=== PATIENT | male | born 1980 | race Caucasian/White ===

== ENCOUNTER 2018-04-19 09:41 | Inpatient (IN) | payer MEDICAID, OTHER ==
[~2018-04-19] VITALS: Ht 175.3 cm; Wt 67.5 kg
[2018-04-19] MEDS ORDERED: SODIUM CHLORIDE FLUSH 10ML SYR IVF ONE (10:00)
[2018-04-19] MEDS ORDERED: SODIUM CHLORIDE 0.9% 1,000ML IVBOLUS ONE ×2 (10:00→11:00)
[2018-04-19] MEDS ORDERED: LORazepam 2 MG/ML, 1ML ONE ×3 (10:12→11:54)
[2018-04-19] MEDS: LORazepam 2 MG/ML, 1ML IVPush PRN ×4 (10:16→13:44)
[2018-04-19 10:21] LABS: BASOPHILS # (AUTO) 0.02 x10^3/uL (0-0.1); BASOPHILS % (AUTO) 0 % (0-1); EOSINOPHILS % (AUTO) 0 % (1-7); LYMPHOCYTES # (AUTO) 1.14 x10^3/uL (1-3.4); LYMPHOCYTES % (AUTO) 6 % (22-44); MD NO; MEAN CORPUSCULAR HEMOGLOBIN 33.2 pg (27.5-34.5); MEAN CORPUSCULAR HGB CONC 35.2 g/dL (33.2-36.2); MEAN CORPUSCULAR VOLUME 94.6 fL (81-97); MEAN PLATELET VOLUME 6.9 fL (7.4-10.4); MONOCYTES # (AUTO) 0.47 x10^3/uL (0.2-0.8); MONOCYTES % (AUTO) 3 % (2-9); NEUTROPHILS % (AUTO) 91 % (42-75); PLATELET COUNT 308 x10^3/uL (130-400); RED BLOOD COUNT 4.71 x10^6/uL (4.38-5.82); RED CELL DISTRIBUTION WIDTH 12.6 % (9.4-14.8)
[2018-04-19 10:31] LABS: ALANINE AMINOTRANSFERASE 52 U/L (12-78); ALBUMIN 4.2 g/dL (3.4-5.0); ANION GAP 19 mmol/L (5-15); CALCIUM 9.3 mg/dL (8.5-10.1); CHLORIDE 102 mmol/L (98-107)
[2018-04-19 10:34] LABS: ALKALINE PHOSPHATASE 95 U/L (45-117); BILIRUBIN,TOTAL 0.8 mg/dL (0.2-1.0); TOTAL PROTEIN 8.1 g/dL (6.4-8.2)
[2018-04-19] MEDS ORDERED: ONDANSETRON 2MG/ML, 2ML IVPush ONE (12:00)
[2018-04-19] MEDS ORDERED: ACETAMINOPHEN 325 MG TABLET PO PRN (13:00)
[2018-04-19] MEDS ORDERED: ONDANSETRON 2MG/ML, 2ML IVPush PRN (13:00)
[2018-04-19] MEDS ORDERED: morphine SULFATE 10 MG/ML, 1ML IVPush PRN (13:00)
[2018-04-19] MEDS: NICOTINE 7 MG/24 HR PATCH.TD24 TD SCH ×2 (13:00→22:23)
[2018-04-19] MEDS ORDERED: LORazepam 2 MG/ML, 1ML IV PRN ×3 (13:00)
[2018-04-19] MEDS ORDERED: LORazepam 1MG TABLET PO PRN ×3 (13:00)
[2018-04-19] MEDS ORDERED: THIAMINE 200 MG, MVI ADULT 10 ML, FOLIC ACID 1 MG in D5%-0.9% NACL 1,000 ML IV SCH (13:30)
[2018-04-19] MEDS: FAMOTIDINE 20 MG/2 ML IVPush SCH ×2 (13:58→21:04)
[2018-04-19] MEDS: LORazepam 1MG TABLET PO PRN (13:58)
[2018-04-19 14:05] VITALS: BP 120/79
[2018-04-19 14:32] VITALS: BP 120/79
[2018-04-19] MEDS ORDERED: ZOLPIDEM 5MG TABLET PO PRN (20:00)
[2018-04-19 20:19] VITALS: BP 111/68
[2018-04-20 01:33] VITALS: BP 118/69
[2018-04-20] MEDS: LORazepam 1MG TABLET PO PRN (04:00)
[2018-04-20 05:38] LABS: BASOPHILS # (AUTO) 0.03 x10^3/uL (0-0.1); BASOPHILS % (AUTO) 1 % (0-1); EOSINOPHILS # (AUTO) 0.06 x10^3/uL (0-0.4); EOSINOPHILS % (AUTO) 1 % (1-7); LYMPHOCYTES # (AUTO) 1.18 x10^3/uL (1-3.4); LYMPHOCYTES % (AUTO) 23 % (22-44); MD NO; MEAN CORPUSCULAR HGB CONC 35.1 g/dL (33.2-36.2); MEAN PLATELET VOLUME 7.3 fL (7.4-10.4); MONOCYTES # (AUTO) 0.51 x10^3/uL (0.2-0.8); MONOCYTES % (AUTO) 10 % (2-9); NEUTROPHILS # (AUTO) 3.44 x10^3/uL (1.8-6.8); NEUTROPHILS % (AUTO) 66 % (42-75); PLATELET COUNT 208 x10^3/uL (130-400); RED BLOOD COUNT 3.91 x10^6/uL (4.38-5.82); RED CELL DISTRIBUTION WIDTH 12.1 % (9.4-14.8)
[2018-04-20 05:46] LABS: ALANINE AMINOTRANSFERASE 41 U/L (12-78); ALBUMIN 3.3 g/dL (3.4-5.0); ANION GAP 8 mmol/L (5-15); CALCIUM 8.7 mg/dL (8.5-10.1); CHLORIDE 106 mmol/L (98-107); CREATININE 0.59 mg/dL (0.7-1.3)
[2018-04-20 05:47] LABS: ALKALINE PHOSPHATASE 81 U/L (45-117); BILIRUBIN,TOTAL 0.9 mg/dL (0.2-1.0); TOTAL PROTEIN 6.7 g/dL (6.4-8.2)
[2018-04-20] MEDS ORDERED: MAGNESIUM SULFATE 4 GM in SODIUM CHLORIDE 0.9% 100 ML IV ONE (07:00)
[2018-04-20 07:44] VITALS: BP 122/79
[2018-04-20] MEDS: FAMOTIDINE 20 MG/2 ML IVPush SCH (08:21)
[2018-04-20 12:47] VITALS: BP 118/77
== END 2018-04-20 13:30 | disposition left against medical advice (07) | DRG 641 ==
LOC: ED 10:20 → EDIP 12:20 → 4EST 13:19
PROVIDERS: ADMIT Hospitalist; ATTEND Internal Medicine
DX: E87.6 Hypokalemia (principal); F10.239 Alcohol dependence with withdrawal, unspecified; F17.210 Nicotine dependence, cigarettes, uncomplicated; E83.42 Hypomagnesemia; D72.829 Elevated white blood cell count, unspecified; Z53.21 Procedure and treatment not carried out due to patient leaving prior to being seen by health care provider
CPT/HCPCS: 36415; 99285; J7042; S0028; 80053; 80307; 83735; 85025; 93005; G0378; J2405; J3411; J3475; J2060; J7030

== ENCOUNTER 2019-01-12 10:02 | Emergency (ER) | payer MEDICAID ==
[~2019-01-12] VITALS: Ht 175.3 cm; Wt 64.3 kg
--- NOTE | 2019-01-12 10:39 | NUR ---
PT C/O BLOOD IN STOOL/NAUSEA/VOMITING. PT STATES HE USES HEROIN OCCASSIONALLY. 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
[2019-01-12] MEDS ORDERED: ONDANSETRON 2MG/ML, 2ML ONE ×2 (10:55→11:30)
[2019-01-12] MEDS ORDERED: FAMOTIDINE 20 MG/2 ML ONE (10:56)
[2019-01-12] MEDS ORDERED: SODIUM CHLORIDE FLUSH 10ML SYR IVF ONE (11:00)
[2019-01-12] MEDS ORDERED: SODIUM CHLORIDE 0.9% 1,000ML IVBOLUS ONE (11:00)
[2019-01-12] MEDS ORDERED: ONDANSETRON 2MG/ML, 2ML IVPush ONE ×2 (11:00→11:30)
[2019-01-12] MEDS ORDERED: FAMOTIDINE 20 MG/2 ML IVP ONE (11:00)
--- NOTE | 2019-01-12 11:14 | NUR ---
Patient is resting comfortably in bed. Vital Signs within normal limits.
--- NOTE | 2019-01-12 11:29 | NUR ---
YELLOW SLIP SENT TO PHARMACY FOR MEDS PER SEP.
[2019-01-12] MEDS ORDERED: THIAMINE 200 MG in SODIUM CHLORIDE 0.9% 50 ML IV ONE (11:30)
[2019-01-12] MEDS ORDERED: morphine SULFATE 10 MG/ML, 1ML IVPush ONE (11:30)
[2019-01-12] MEDS ORDERED: FOLIC ACID 1 MG in DEXTROSE 5% 50 ML IV SCH (11:30)
[2019-01-12] MEDS ORDERED: LORazepam 2 MG/ML, 1ML IVPush ONE (11:30)
[2019-01-12] MEDS ORDERED: LORazepam 2 MG/ML, 1ML ONE (11:31)
[2019-01-12] MEDS ORDERED: MORPHINE SULFATE 4 MG/ML, 1ML ONE (11:31)
--- NOTE | 2019-01-12 11:58 | NUR ---
PT REPORTS HE FEELS MUCH BETTER NOW. VSS. NAD. PT EATING ICE CHIPS AND TOLERATING INTAKE.
[2019-01-12 12:05] LABS: BASOPHILS # (AUTO) 0.05 x10^3/uL (0-0.1); BASOPHILS % (AUTO) 0 % (0-1); EOSINOPHILS % (AUTO) 0 % (1-7); LYMPHOCYTES # (AUTO) 1.37 x10^3/uL (1-3.4); LYMPHOCYTES % (AUTO) 11 % (22-44); MD NO; MEAN CORPUSCULAR HEMOGLOBIN 31.8 pg (27.5-34.5); MEAN CORPUSCULAR HGB CONC 33.7 g/dL (33.2-36.2); MEAN CORPUSCULAR VOLUME 94.3 fL (81-97); MEAN PLATELET VOLUME 7.4 fL (7.4-10.4); MONOCYTES % (AUTO) 5 % (2-9); NEUTROPHILS # (AUTO) 10.64 x10^3/uL (1.8-6.8); NEUTROPHILS % (AUTO) 84 % (42-75); PLATELET COUNT 333 x10^3/uL (130-400); RED BLOOD COUNT 5.28 x10^6/uL (4.38-5.82); RED CELL DISTRIBUTION WIDTH 12.7 % (9.4-14.8)
[2019-01-12 12:17] LABS: ALBUMIN 4.5 g/dL (3.4-5.0); ANION GAP 22 mmol/L (5-15); CALCIUM 9.7 mg/dL (8.5-10.1); CHLORIDE 105 mmol/L (98-107)
[2019-01-12 12:20] LABS: ALANINE AMINOTRANSFERASE 36 U/L (12-78); ALKALINE PHOSPHATASE 114 U/L (45-117); BILIRUBIN,TOTAL 0.7 mg/dL (0.2-1.0); CREATININE 0.97 mg/dL (0.7-1.3); TOTAL PROTEIN 8.5 g/dL (6.4-8.2)
[2019-01-12] MEDS ORDERED: MAALOX/HYOSCYAMINE/LIDOCAINE 45 ML BTL ONE (13:22)
[2019-01-12] MEDS ORDERED: MAALOX/HYOSCYAMINE/LIDOCAINE 45 ML BTL PO ONE (13:30)
[2019-01-12 13:35] VITALS: BP 128/76
== END 2019-01-12 14:01 | disposition home or self-care (01) ==
LOC: ED 12:52
DX: S20.211A Contusion of right front wall of thorax, initial encounter (principal); K29.71 Gastritis, unspecified, with bleeding; F10.239 Alcohol dependence with withdrawal, unspecified; X58.XXXA Exposure to other specified factors, initial encounter; Y93.89 Activity, other specified; Y92.89 Other specified places as the place of occurrence of the external cause; Y99.8 Other external cause status
CPT/HCPCS: 36415; 71046; 80053; 83690; 85025; 93005; 96361; 96365; 96367; 96375; 99284; J2060; J2270; J2405; J3411; J3490; J7030

== ENCOUNTER 2019-02-03 06:13 | Emergency (ER) | payer MEDICAID ==
[~2019-02-03] VITALS: Ht 180.3 cm; Wt 65.2 kg
[2019-02-03] MEDS ORDERED: THIAMINE 100MG TABLET ONE (06:45)
[2019-02-03] MEDS ORDERED: LORazepam 1MG TABLET ONE (06:46)
[2019-02-03] MEDS ORDERED: THIAMINE 100MG TABLET PO ONE (07:00)
[2019-02-03] MEDS ORDERED: LORazepam 1MG TABLET PO ONE (07:00)
[2019-02-03 07:08] LABS: BASOPHILS # (AUTO) 0.08 x10^3/uL (0-0.1); BASOPHILS % (AUTO) 1 % (0-1); EOSINOPHILS % (AUTO) 7 % (1-7); LYMPHOCYTES # (AUTO) 1.66 x10^3/uL (1-3.4); LYMPHOCYTES % (AUTO) 29 % (22-44); MD NO; MEAN CORPUSCULAR HEMOGLOBIN 32.2 pg (27.5-34.5); MEAN CORPUSCULAR HGB CONC 34.2 g/dL (33.2-36.2); MONOCYTES % (AUTO) 9 % (2-9); NEUTROPHILS # (AUTO) 3.02 x10^3/uL (1.8-6.8); NEUTROPHILS % (AUTO) 53 % (42-75); PLATELET COUNT 263 x10^3/uL (130-400); RED CELL DISTRIBUTION WIDTH 12.4 % (9.4-14.8)
[2019-02-03 07:18] LABS: ALBUMIN 4.1 g/dL (3.4-5.0); ANION GAP 13 mmol/L (5-15); CALCIUM 8.9 mg/dL (8.5-10.1); CHLORIDE 103 mmol/L (98-107)
[2019-02-03 07:22] LABS: ALANINE AMINOTRANSFERASE 84 U/L (12-78); ALKALINE PHOSPHATASE 111 U/L (45-117); BILIRUBIN,TOTAL 0.6 mg/dL (0.2-1.0); CREATININE 0.76 mg/dL (0.7-1.3); TOTAL PROTEIN 7.8 g/dL (6.4-8.2)
--- NOTE | 2019-02-03 07:28 | NUR ---
PT RESTING ON GURNEY, DENIES PAIN, NAD NOTED
[2019-02-03 08:15] VITALS: BP 100/70
--- NOTE | 2019-02-03 08:15 | NUR ---
ERMD IN TO UPDATE PT ON POC
== END 2019-02-03 08:54 | disposition home or self-care (01) ==
LOC: ED 06:35
DX: F10.229 Alcohol dependence with intoxication, unspecified (principal)
CPT/HCPCS: 36415; 80053; 80307; 85025; 99283

== ENCOUNTER 2019-07-06 13:19 | Emergency (ER) | payer MEDICAID ==
[~2019-07-06] VITALS: Ht 182.9 cm; Wt 75.0 kg
[2019-07-06 13:29] VITALS: BP 138/76
[2019-07-06 14:00] LABS: BASOPHILS # (AUTO) 0.07 x10^3/uL (0-0.1); BASOPHILS % (AUTO) 1 % (0-1); EOSINOPHILS # (AUTO) 0.02 x10^3/uL (0-0.4); EOSINOPHILS % (AUTO) 0 % (1-7); LYMPHOCYTES # (AUTO) 1.75 x10^3/uL (1-3.4); LYMPHOCYTES % (AUTO) 24 % (22-44); MD NO; MEAN CORPUSCULAR HEMOGLOBIN 33.1 pg (27.5-34.5); MEAN CORPUSCULAR HGB CONC 34.3 g/dL (33.2-36.2); MEAN CORPUSCULAR VOLUME 96.7 fL (81-97); MEAN PLATELET VOLUME 5.9 fL (7.4-10.4); MONOCYTES # (AUTO) 0.79 x10^3/uL (0.2-0.8); MONOCYTES % (AUTO) 11 % (2-9); NEUTROPHILS # (AUTO) 4.72 x10^3/uL (1.8-6.8); NEUTROPHILS % (AUTO) 64 % (42-75); PLATELET COUNT 254 x10^3/uL (130-400); RED BLOOD COUNT 5.07 x10^6/uL (4.38-5.82); RED CELL DISTRIBUTION WIDTH 12.4 % (9.4-14.8)
[2019-07-06 14:11] LABS: ALANINE AMINOTRANSFERASE 83 U/L (12-78); ALBUMIN 4.3 g/dL (3.4-5.0); ANION GAP 16 mmol/L (5-15); CALCIUM 8.8 mg/dL (8.5-10.1); CHLORIDE 106 mmol/L (98-107); CREATININE 0.77 mg/dL (0.7-1.3)
[2019-07-06] MEDS ORDERED: MAALOX/HYOSCYAMINE/LIDOCAINE 45 ML BTL ONE (14:19)
[2019-07-06 14:21] LABS: ALKALINE PHOSPHATASE 96 U/L (45-117); BILIRUBIN,TOTAL 0.5 mg/dL (0.2-1.0)
--- NOTE | 2019-07-06 14:25 | NUR ---
PATIENT MEDICATED PER SEP. RIGHTS VERIFIED PRIOR.
[2019-07-06] MEDS ORDERED: MAALOX/HYOSCYAMINE/LIDOCAINE 45 ML BTL PO ONE (14:30)
--- NOTE | 2019-07-06 14:38 | NUR ---
PT LYING IN GURNY ATTEMPTING TO SLEEP. MOVING AROUND A LITTLE. BR X 2 UP. WILL CONTINUE TO MONITOR.
--- NOTE | 2019-07-06 15:21 | NUR ---
PATIENT GIVEN WATER PER REQUEST
--- NOTE | 2019-07-06 15:46 | NUR ---
laminator: Pt came out to nurses station fully dressed, ambulating w/ a steady gait, stating that he does not wish for further evaluation. Pt departing in NAD, primary RN Jr & MD Patel aware
== END 2019-07-06 15:51 | disposition left against medical advice (07) ==
LOC: ED 15:45
DX: F10.120 Alcohol abuse with intoxication, uncomplicated (principal); R10.84 Generalized abdominal pain; Y90.9 Presence of alcohol in blood, level not specified
CPT/HCPCS: 36415; 74022; 80053; 80307; 83690; 85025; 99284

== ENCOUNTER 2019-12-05 15:25 | Emergency (ER) | payer MEDICAID ==
[~2019-12-05] VITALS: Ht 175.3 cm; Wt 80.3 kg
[2019-12-05 15:30] VITALS: BP 128/81
--- NOTE | 2019-12-05 16:35 | NUR ---
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
== END 2019-12-05 17:22 | disposition home or self-care (01) ==
LOC: ED 17:00
DX: F10.20 Alcohol dependence, uncomplicated (principal); Z76.0 Encounter for issue of repeat prescription; F17.200 Nicotine dependence, unspecified, uncomplicated; Y90.9 Presence of alcohol in blood, level not specified
CPT/HCPCS: 99283